=== PATIENT | female | born 1975 | race American Indian/Alaskan Native ===

== ENCOUNTER 2016-12-23 20:34 | Emergency (ER) | payer MEDICAID, OTHER ==
[2016-12-23 20:44] VITALS: BP 110/60; PULSE 92; RESP 18; TEMP 98.4; O2SAT 99
[2016-12-23] MEDS ORDERED: Bacitracin OINT 15GM TOP STA (20:45)
[2016-12-23] MEDS ORDERED: TDAP Vaccine 0.5 mL Syr IM ONE (20:45)
[2016-12-23] MEDS ORDERED: Tetanus/Diphtheria Toxoids 0.5 ml Syringe IM ONE (20:48)
--- NOTE | 2016-12-23 21:02 | ED PDOC ---
Lower Extremity Pain/Injury Time Seen by Provider: 12/23/16 20:38 Chief Complaint (Nursing): Abnormal Skin Integrity Chief Complaint (Provider): Cut on right thigh History Per: Patient History/Exam Limitations: no limitations Onset/Duration Of Symptoms: Mins Additional Complaint(s): Patient is a 41 year old female presenting to the emergency department for a cut on her right thigh that she sustained earlier today after sitting down on a stool that contained poking metal wire. She is not up to date with tetanus shot. PCP: Dr. Sanju Williamson Past Medical History Reviewed: Historical Data, Nursing Documentation, Vital Signs Vital Signs: Last Vital Signs Temp 98.4 F 12/23/16 20:42 Pulse 92 H 12/23/16 20:42 Resp 18 12/23/16 20:42 BP 110/60 12/23/16 20:42 Pulse Ox 99 12/23/16 20:42 - Medical History PMH: Arthritis, Asthma, Back Problems, Gastritis, Pancreatitis - Surgical History Surgical History: Cholecystectomy - Family History Family History: States: Unknown Family Hx - Social History Current smoker - smoking cessation education provided: Yes (less than 10 cigarettes per day) Alcohol: Social Drugs: Denies - Immunization History Hx Tetanus Toxoid Vaccination: Yes Hx Influenza Vaccination: No Hx Pneumococcal Vaccination: No - Home Medications Home Medications: Ambulatory Orders Medication Instructions Recorded Ketorolac Tromethamine [Toradol] 10 mg PO QID PRN #20 tab 06/30/16 diaZEpam [Valium] 5 mg PO TID #21 tab 06/30/16 predniSONE [Prednisone] 20 mg PO BID #10 tab 06/30/16 traMADol/Acetaminophen [Ultracet 1 tab PO Q8 PRN #15 tab 06/30/16 325 MG-37.5 MG] - Allergies Allergies/Adverse Reactions: Allergies Allergy/AdvReac Type Severity Reaction Status Date / Time No Known Allergies Allergy Verified 12/23/16 20:44 Review of Systems ROS Statement: Except As Marked, All Systems Reviewed And Found Negative Musculoskeletal: Positive for: Leg Pain (Right thigh pain) Skin: Positive for: Other (Cut on right thigh) Physical Exam - Reviewed Nursing Documentation Reviewed: Yes Vital Signs Reviewed: Yes - Physical Exam Appears: Positive for: Well, Non-toxic, No Acute Distress Head Exam: Positive for: ATRAUMATIC, NORMAL INSPECTION, NORMOCEPHALIC Skin: Positive for: Normal Color, Warm, Dry Extremity: Positive for: Normal ROM (Full active ROM of right knee), Other ( Superficial abrasion and avulsion noted to posterior distral right thigh). Negative for: Deformity (No gaping wound or active bleeding) Neurologic/Psych: Positive for: Alert, Oriented - ECG O2 Sat by Pulse Oximetry: 99 (RA) Pulse Ox Interpretation: Normal Medical Decision Making Medical Decision Makin:46 Initial Impression: Right thigh pain Initial Plan: * Wound cleansed * TDAP Vaccine * Bacitracin ointment applied to wound 21:00 Upon provider reevaluation patient is medically stable, and requires no further treatment in the ED at this time and patient will be discharged. Counseling was provided and all questions were answered regarding diagnosis. There is agreement to discharge plan. Return if symptoms persist or worsen. Clinical impression: Abrasion Scribe Attestation: Documented by Annalise Guo, acting as a scribe for Simone Bermeo PA-C. Provider Scribe Attestation: All medical record entries made by the Scribe were at my direction and personally dictated by me. I have reviewed the chart and agree that the record accurately reflects my personal performance of the history, physical exam, medical decision making, and the department course for this patient. I have also personally directed, reviewed, and agree with the discharge instructions and disposition. Disposition - Clinical Impression Clinical Impression: Abrasion - Patient ED Disposition Is Patient to be Admitted: No Counseled Patient/Family Regarding: Diagnosis - Disposition Referrals: [facility] [Outside] Disposition Time: 21:00 Condition: STABLE Instructions: Abrasion (ED) Print Language: SYRIAC
== END 2016-12-23 20:57 | disposition home or self-care (01) ==
LOC: H.ER 20:34
DX: T14.8 Other injury of unspecified body region (principal); W26.8XXA Contact with other sharp object(s), not elsewhere classified, initial encounter; Y92.89 Other specified places as the place of occurrence of the external cause; J45.909 Unspecified asthma, uncomplicated; K85.90 Acute pancreatitis without necrosis or infection, unspecified